=== PATIENT | female | born 1945 | race Caucasian/White ===

== ENCOUNTER 2018-12-07 11:28 | Day surgery (SDC) | payer MEDICARE, BC ==
[~2018-12-07] VITALS: Ht 162.6 cm; Wt 87.2 kg
[~2018-12-07 11:28] MED LIST: ACET325 PO; ADVANCED CALCI1 EACH PO; ALBU3IS INH; ALBU90OI INH; AMLO5 PO; ASPI325EC PO; ASPI81CH PO; ATOR40TA; AZO CRANBERRY1 EACH PO; BALANCED B-CO400 MCG PO; CALCAVITDA PO; CELE200 PO; CLOT10 PO; CYCL10 PO; ESOM20 PO; EZET10 PO; FENO54 PO; FERR325 PO; FISH1000 PO; Florastor250 MG PO; GABA100 PO; GABA300 PO; GUAI600T33 PO; Garlic1 EACH PO; HYDACE5 PO; HYDMOR2 PO; Hair, Skin & N1 EACH PO; LEVO750 PO; LISI5 PO; MELO7.5 PO; MULVITMIND PO; Mag-G500 MG; NAPR500 PO; NASACORT10.8 ML NS; NIAC500ER PO; OMEP20ER; OMEP20ER PO; PYRI100 PO; ROSU5 PO; RXCYCL10 PO; SODCHL.65S; TEMA30 PO; TEMAZEPAM PO; UBID10; VAGIFEM10 MCG VG; VARE1 PO
[2018-12-07] MEDS ORDERED: Aspir 8181 MG (12:25)
--- NOTE | 2018-12-07 16:02 | NUR ---
12/07/18 1602 Johanna Box LATE ENTRY FOR TODAY DURING RECOVER PATIENT REFUSED MULTIPLE OFFERS PO FLUIDS.
== END 2018-12-07 14:46 | disposition home or self-care (01) ==
LOC: ORSCSDS 11:28
PROVIDERS: Student in an Organized Health Care Education/Training Program
PROC: 0DBK8ZX Excision of Ascending Colon, Via Natural or Artificial Opening Endoscopic, Diagnostic (ICD-10-PCS; principal; 2018-12-07 13:45)
PROC: 0DBG8ZX Excision of Left Large Intestine, Via Natural or Artificial Opening Endoscopic, Diagnostic (ICD-10-PCS; principal; 2018-12-07 13:45)
DX: Z12.11 Encounter for screening for malignant neoplasm of colon (principal); D12.2 Benign neoplasm of ascending colon; K63.89 Other specified diseases of intestine; K57.30 Diverticulosis of large intestine without perforation or abscess without bleeding; K64.8 Other hemorrhoids; I10 Essential (primary) hypertension; I25.10 Atherosclerotic heart disease of native coronary artery without angina pectoris; J44.9 Chronic obstructive pulmonary disease, unspecified; G47.33 Obstructive sleep apnea (adult) (pediatric); E78.5 Hyperlipidemia, unspecified; Z79.82 Long term (current) use of aspirin; Z79.899 Other long term (current) drug therapy
CPT/HCPCS: 88305; J2405; J2704; J7120

== ENCOUNTER 2020-03-22 21:17 | Inpatient (IN) | payer MEDICARE, BC ==
[~2020-03-22] VITALS: Ht 177.8 cm; Wt 86.7 kg
[~2020-03-22 21:17] MED LIST changes: +Aspir 8181 MG
[2020-03-22 22:12] LABS: BASOPHILS ABSOLUTE AUTO 0.02 K/mm3 (0.00-0.23); BASOPHILS PERCENT AUTO 0 % (0-2); EOSINOPHILS PERCENT AUTO 0 % (0-6); Hematocrit 43.1 % (33.0-51.0); Hemoglobin 14.1 g/dL (11.5-16.0); IMMATURE GRAN ABSOLUTE AUTO 0.05 K/mm3 (0.00-0.10); IMMATURE GRAN PERCENT AUTO 1 % (0-1); LYMPHOCYTES ABSOLUTE AUTO 0.95 K/mm3 (0.84-5.20); LYMPHOCYTES PERCENT AUTO 10 % (21-46); MONOCYTES ABSOLUTE AUTO 0.57 K/mm3 (0.16-1.47); MONOCYTES PERCENT AUTO 6 % (4-13); Mean Corpuscular HGB 30.7 pg (26.0-34.0); Mean Corpuscular HGB Conc 32.7 g/dL (31.5-36.5); Mean Corpuscular Volume 94 fL (80-100); Mean Platelet Volume 10.3 fL (9.1-12.4); NEUTROPHILS ABSOLUTE AUTO 8.06 K/mm3 (1.96-9.15); NEUTROPHILS PERCENT AUTO 84 % (41-73); Platelet Count 199 K/mm3 (150-400); RDW Coefficient Variation 14.4 % (11.7-14.2); RDW Standard Deviation 49.6 fL (35.1-46.3); Red Blood Cell Count 4.59 M/mm3 (3.80-5.20); White Blood Cell Count 9.65 K/mm3 (4.00-11.30)
[2020-03-22 22:33] LABS: Albumin, Blood 3.2 g/dL (3.4-5.0); Albumin/Globulin Ratio 0.8 (0.8-1.8); Bilirubin, Total 0.6 mg/dL (0.1-1.0); Calcium, Blood 8.6 mg/dL (8.5-10.1); Creatinine, Blood 1.16 mg/dL (0.40-1.00); Globulin, Blood 3.8 g/dL (2.2-4.0); Troponin I 0.025 ng/mL (0.000-0.040)
[2020-03-22 23:38] LABS: Adenovirus Not Detected (NOT DETECT); Bordetella pertussis Not Detected (NOT DETECT); Chlamydophila pneumoniae Not Detected (NOT DETECT); Coronavirus 229E Not Detected (NOT DETECT); Coronavirus HKU1 Not Detected (NOT DETECT); Coronavirus NL63 Not Detected (NOT DETECT); Coronavirus OC43 Not Detected (NOT DETECT); Human Metapneumovirus Not Detected (NOT DETECT); Human Rhinovirus/Enterovirus Not Detected (NOT DETECT); Influenza A/2009-H1 Not Detected (NOT DETECT); Influenza A/H1 Not Detected (NOT DETECT); Influenza A/H3 Not Detected (NOT DETECT); Influenza B Not Detected (NOT DETECT); Mycoplasma pneumoniae Not Detected (NOT DETECT); Parainfluenza Virus 1 Not Detected (NOT DETECT); Parainfluenza Virus 2 Not Detected (NOT DETECT); Parainfluenza Virus 3 Not Detected (NOT DETECT); Parainfluenza Virus 4 Not Detected (NOT DETECT); Respiratory Syncytial Virus Not Detected (NOT DETECT); SARS-Cov-2 (COVID-19), BioFire Detected (NOT DETECT)
[2020-03-22] MEDS ORDERED: ACET325 (23:47)
[2020-03-22] MEDS ORDERED: ASPI81CH PO (23:47)
--- NOTE | 2020-03-23 02:06 | NUR ---
0134 PT ADMITTED TO ROOM 356 PER CART FROM ER; REPORT RECEIVED FROM XOCHITL GRANT, IN ER.
--- NOTE | 2020-03-23 04:15 | NUR ---
SHIFT SUMMARY: 74 Y/O FEMALE HAD RESTLESS NIGHT SINCE ARRIVAL TO UNIT; PT HAS NON PRODUCTIVE COUGH AND CHILLS AT TIMES WITH NO TEMPERATURE NOTED; PT COVID POSITIVE AND WAS PLACED ON DROPLET PRECAUTIONS; DENIES PAIN; ABLE TO TAKE ALL MEDS WITHOUT ISSUE; VERY WEAK; STOOD AND UTILIZED BSC TO VOID X 1 STANDBY ASSIST; CPAP APPLIED VIA RESPIRATORY THERAPIST; BED LOW POSITION WITH QUINTON LIGHT AT SIDE.
[2020-03-23 06:07] LABS: Bun/Creatinine Ratio 27.2 (12.0-20.0); Calcium, Blood 8.6 mg/dL (8.5-10.1); Creatinine, Blood 1.14 mg/dL (0.40-1.00); Potassium, Blood 3.1 mmol/L (3.5-5.5)
[2020-03-23 06:27] LABS: Albumin, Blood 3.4 g/dL (3.4-5.0); Albumin/Globulin Ratio 0.9 (0.8-1.8); Bilirubin, Total 0.7 mg/dL (0.1-1.0); Bun/Creatinine Ratio 26.5 (12.0-20.0); Calcium, Blood 8.6 mg/dL (8.5-10.1); Creatinine, Blood 1.13 mg/dL (0.40-1.00); Globulin, Blood 3.7 g/dL (2.2-4.0); Potassium, Blood 3.1 mmol/L (3.5-5.5); Total Protein, Blood 7.1 g/dL (6.4-8.2)
--- NOTE | 2020-03-24 03:45 | NUR ---
SUMMARY PT HAD NO NOTED FEVERS THIS SHIFT. PT STILL REPORTS FEELING CHILLS/ COLD AND WEAK. PT HAS BEEN SLEEPING WELL W/ HOME CPAP. PT CURRENTLY SLEEPING AND BREATHING EASY. CALL LIGHT IN REACH.
[2020-03-24 06:24] LABS: Alanine Aminotransfer (ALT/SGP 57 U/L (12-78); Albumin, Blood 2.8 g/dL (3.4-5.0); Albumin/Globulin Ratio 0.8 (0.8-1.8); Alk Phos 45 U/L (50-136); Anion Gap 8 mmol/L (6-16); Aspartate Aminotrans (AST/SGOT 95 U/L (12-37); Bilirubin, Total 0.5 mg/dL (0.1-1.0); Blood Urea Nitrogen 25 mg/dL (8-24); Bun/Creatinine Ratio 33.8 (12.0-20.0); CO2, Blood 23 mmol/L (21-32); Calcium, Blood 8.5 mg/dL (8.5-10.1); Chloride, Blood 112 mmol/L (98-108); Creatinine, Blood 0.74 mg/dL (0.40-1.00); Globulin, Blood 3.4 g/dL (2.2-4.0); Glomerular Filtration Rate >60 (60-); Glucose, Blood 99 mg/dL (70-99); Potassium, Blood 3.6 mmol/L (3.5-5.5); Sodium, Blood 143 mmol/L (136-145); Total Protein, Blood 6.2 g/dL (6.4-8.2)
--- NOTE | 2020-03-24 17:23 | NUR ---
SHIFT SUMMARY PT SATING IN THE 90S T/O DAY ON RA. AFIBRILE T/O DAY. PARTIAL BATH GIVEN TO PT. PT STATES SHE IS FEELING MUCH BETTER. PHYSICAL THERAPY ORDERED PER DR. CANALES. PT POSIBLE DC TOMORROW PENDING PT CONDITION & PT EVAL. NO ACUTE CHANGES IN ASSESSMENT AT THIS TIME. VS REVIEWED. WILL CONTINUE TO MONITOR. UNTIL TURNOVER IS COMPLETE.
--- NOTE | 2020-03-24 18:11 | NUR ---
PT AMBULATED TO BATHROOM. PT AMBILATED TO BATHROOM WITH GAIT BELT AND WALKER WITH MINIMAL ASSIST. PT MAINTAINED O2 SATS ABOVE 94% ON RA T/O ACTIVITY.
--- NOTE | 2020-03-25 01:35 | NUR ---
NOTIFIED THAT PT HAS BEEN BRADYCARDIC W/HR 54-58, OCCASIONALLY 60'S BPM BUT PT IS ASYMPTOMATIC OF CARDIAC DISTRESS, SLEEPING COMFORTABLY ON CPAP W/SPO2 WNL. NO NEW ORDERS AT THIS TIME. WILL CONTINUE TO MONITOR CLOSELY AND ALERT MD CASTILLO.
--- NOTE | 2020-03-25 02:12 | NUR ---
PT IS COVID AND FLU NEGATIVE. HE ALSO HAD HIS FLU VACCINE ALREADY THIS SEASON SO DENIED NEEDING ONE HERE.
--- NOTE | 2020-03-25 06:07 | NUR ---
TYLENOL RECIEVED FOR IMPROVED MCGRATH PAIN CONTROL. SHE'S NOW RESTING AGAIN W/O S/S DISTRESS.
--- NOTE | 2020-03-25 06:08 | NUR ---
PT WAS UP TO TOILET W/SBA FOR VOID AND BM. MODERATE AMT OF BRIGHT RED BLOOD OBSERVED IN TOILET. PT ADMITTED TO OCCASIONAL BLEEDING HEMMORHOIDS BUT STATED "NOT USUALLY THAT MUCH BLOOD". PT ON LOVENOX INJECTIONS AT THIS TIME. VSS: BP STABLE 131/81, HR 82 BPM, SPO2 96% ON RA, RR 18 AND TEMP 98.2. WILL NOTIFY BOILER HOUSE INSPECTOR AND POSSIBLY PRN AND WILL ENSURE DAY STAFF ARE AWARE.
--- NOTE | 2020-03-25 06:30 | NUR ---
SUMMARY: PT A/OX4, CALLS APPROPRIATELLY AND COOPERATIVE W/CARE. SHE REMAINS VERY TIRED AND SLEPT MAJORITY OF SHIFT. CONT BIOX REMAINS INTACT W/SPO2 WNL ON RA AND SHE TOLERATES CPAP AT HS. RESPS E/U BUT SOME SOB NOTED W/EXERTION. TELEMETRY INTACT AND SHE IS TYPICALLY NSR AT 60'S-80'S BPM BUT SHE DID HAVE OCCASIONAL BRADYCARDIA WHILE ASLEEP, HR LOW OF 54 BPM. PT DENIED ANY S/S CARDIAC DISTRESS. PT REPORTED MCGRATH W/TYLENOL RECIEVED FOR GOOD EFFECT. SHE WAS UP TO TOILET W/1PA AND FWW. SHE'S WEAK AND SHAKEY R/T ILLNESS/STEROIDS SO SHE AMBULATES SLOWLY AND CAUTIOUSLY. PT HAD X1 FORMED BM THIS SHIFT W/MODERATE AMT OF BRIGHT RED BLOOD. SHE IS CURRENTLY ON LOVENOX AND ADMITS TO OCCASIONAL BLEEDING HEMMORHOIDS BUT "NOT USUALLY THIS MUCH". WILL ENSURE DAY STAFF ARE AWARE. VITALS CHECKED PER UNIT PROTOCOL BUT WERE ADDITIONALLY MONITORED WHEN BRADYCARDIC AND AFTER OBSERVING BLOOD IN STOOL, ALL VSS/AFEBRILE. SHE REPORTS FEELING GENERALLY BETTER BUT IS UNSURE SHE FEELS WELL ENOUGH TO D/C TODAY INITIALLY PLANNED. NO ACUTE CHANGES. WCTM AND REPORT TO DAY RN.
[2020-03-25 10:29] LABS: BASOPHILS ABSOLUTE AUTO 0.01 K/mm3 (0.00-0.23); BASOPHILS PERCENT AUTO 0 % (0-2); EOSINOPHILS PERCENT AUTO 0 % (0-6); Hematocrit 42.6 % (33.0-51.0); Hemoglobin 13.6 g/dL (11.5-16.0); IMMATURE GRAN ABSOLUTE AUTO 0.07 K/mm3 (0.00-0.10); IMMATURE GRAN PERCENT AUTO 1 % (0-1); LYMPHOCYTES ABSOLUTE AUTO 1.32 K/mm3 (0.84-5.20); LYMPHOCYTES PERCENT AUTO 15 % (21-46); MONOCYTES ABSOLUTE AUTO 0.33 K/mm3 (0.16-1.47); MONOCYTES PERCENT AUTO 4 % (4-13); Mean Corpuscular HGB Conc 31.9 g/dL (31.5-36.5); Mean Corpuscular Volume 97 fL (80-100); Mean Platelet Volume 11.1 fL (9.1-12.4); NEUTROPHILS ABSOLUTE AUTO 7.23 K/mm3 (1.96-9.15); NEUTROPHILS PERCENT AUTO 81 % (41-73); Platelet Count 291 K/mm3 (150-400); RDW Coefficient Variation 14.2 % (11.7-14.2); RDW Standard Deviation 51.3 fL (35.1-46.3); Red Blood Cell Count 4.39 M/mm3 (3.80-5.20); White Blood Cell Count 8.96 K/mm3 (4.00-11.30)
[2020-03-25 12:01] LABS: ADENOVIRUS F 40/41 Not Detected (Not Detected); ASTROVIRUS Not Detected (Not Detected); C DIFFICILE TOXIN A/B Not Detected (Not Detected); CAMPYLOBACTER Not Detected (Not Detected); CRYPTOSPORIDIUM Not Detected (Not Detected); CYCLOSPORA CAYETANENSIS Not Detected (Not Detected); ENTAMOEBA HISTOLYTICA Not Detected (Not Detected); ENTEROAGGREGATIVE E COLI Not Detected (Not Detected); ENTEROPATHOGENIC E COLI Not Detected (Not Detected); ENTEROTOXIGENIC E COLI Not Detected (Not Detected); GIARDIA LAMBLIA Not Detected (Not Detected); NOROVIRUS GI/GII Not Detected (Not Detected); PLESIOMONAS SHIGELLOIDES Not Detected (Not Detected); ROTAVIRUS A Not Detected (Not Detected); SALMONELLA Not Detected (Not Detected); SAPOVIRUS Not Detected (Not Detected); SHIGA-TOXIN-PRODUCING E COLI Not Detected (Not Detected); SHIGELLA/ENTEROINVASIVE E COLI Not Detected (Not Detected); VIBRIO Not Detected (Not Detected); VIBRIO CHOLERAE Not Detected (Not Detected); YERSINIA ENTEROCOLITICA Not Detected (Not Detected)
--- NOTE | 2020-03-25 13:36 | NUR ---
No visitor is allowed, door is closed
--- NOTE | 2020-03-25 17:00 | NUR ---
SHIFT SUMMARY PATIENT MEDICATED X1 FRO HEADACHE. DENIES NAUSEA AND SHORTNESS OF BREATH. PATIENT VERY TIRED AND SLEEPING MOST OF SHIFT. UP ONE ASSIST W/FWW TO BATHROOM. PT WORKED WITH PATIENT. HOLDING HEPARIN AND ASPIRIN DUE TO BLOOD IN STOOL THIS AM. STAT CBC THIS AM UNREMARKABLE. POSSIBLE DISCHARGE TOMORROW.
--- NOTE | 2020-03-25 17:43 | NUR ---
Per admit trigger, I attempted to meet with Mrs. Conde to offer prayer and spiritual encouragement. RN informed me that pt is very tired and Covid+. she suggested I not visit. Asked RN to inform Mrs. Conde that marble finisher is praying for her and wuold be happy to visit in person if she desired. RN informed me that pt declined visit at this time. I will remain available.
--- NOTE | 2020-03-26 05:49 | NUR ---
SHIFT SUMMARY PT A/O X4; PLEASANT AND COOPERATIVE WITH CARE. 1 ASSIST W/FWW TO THE BATHROOM. PT APPEARS TO BE VERY FATIGUED AND HAS BEEN RESTING IN BED FOR THE MAJORITY OF THE SHIFT. MEDICATED X2 FOR HEADACHE. PT REFUSED HEPARIN SHOT THIS PM. VSS; RESTING QUIETLY IN BED W/CALL LIGHT IN REACH.
--- NOTE | 2020-03-26 12:42 | NUR ---
Not allowed to visit
--- NOTE | 2020-03-26 14:46 | NUR ---
DISCHARGE DISCHARGE MEDICATIONS AND INSTRUCTIONS EXPLAINED TO PATIENT. PATIENT STATED UNDERSTANDING. PCP FOLLOW UP WITH [facility]. BELONGINGS WITH PATIENT. IV REMOVED WITHOUT DIFFICULTY. TRANSFERED TO PRIVATE VEHICLE VIA WHEELCHAIR.
== END 2020-03-26 14:50 | disposition home health service (06) | DRG 871 ==
LOC: ER 21:17 → MEDS 21:18
PROVIDERS: Emergency Medicine; Internal Medicine; ADMIT Family Medicine
PROC: 3E0333Z Introduction of Anti-inflammatory into Peripheral Vein, Percutaneous Approach (ICD-10-PCS; principal; 2020-03-23)
DX: A41.89 Other specified sepsis (principal); J12.89 Other viral pneumonia; J96.01 Acute respiratory failure with hypoxia; U07.1 COVID-19; E87.2 Acidosis; N17.9 Acute kidney failure, unspecified; D68.32 Hemorrhagic disorder due to extrinsic circulating anticoagulants; E86.0 Dehydration; E87.6 Hypokalemia; G62.9 Polyneuropathy, unspecified; E78.5 Hyperlipidemia, unspecified; Z87.891 Personal history of nicotine dependence; G47.33 Obstructive sleep apnea (adult) (pediatric); T38.0X5A Adverse effect of glucocorticoids and synthetic analogues, initial encounter; T45.515A Adverse effect of anticoagulants, initial encounter; K64.9 Unspecified hemorrhoids
CPT/HCPCS: 0097U; 0202U; 36415; 71045; 80048; 80053; 82947; 83605; 84145; 84484; 85025; 87040; 93005; 93010; 94762; 96360; 96361; 96365; 96372; 97110; 97116; 97162; 99285-25; A9270; A9270-GY; G0378; J0696; J1644; J7030; J7050

== ENCOUNTER → 2021-01-27 | Outpatient (CLI) | payer MEDICARE, BC ==
[~2021-01-27] MED LIST changes: +ACET325; +ACET500 PO; +ALOE VERA JUICE PO; +AZIT250 PO; +Aspirin EC81 MG PO; +BENADRYL25 MG PO; +Cranberry400 MG PO; +ELIQUIS5 MG PO; +HYDCHL12.5 PO; +MELATONIN5 M1 PO; +MULVITA PO; +NASACORT10.8 ML; +Neurontin800 MG PO; +VALARIAN ROOT PO; +VITAMIN B PO; +VITAMIN B12 PO; +VITAMIN C PO; +VITAMIN D PO; +XARELTO20 MG PO
[2021-01-27 18:14] LABS: BASOPHILS PERCENT AUTO 1 % (0-2); EOSINOPHILS ABSOLUTE AUTO 0.46 K/mm3 (0.00-0.68); EOSINOPHILS PERCENT AUTO 4 % (0-6); Hemoglobin 14.4 g/dL (11.5-16.0); IMMATURE GRAN ABSOLUTE AUTO 0.06 K/mm3 (0.00-0.10); IMMATURE GRAN PERCENT AUTO 1 % (0-1); LYMPHOCYTES ABSOLUTE AUTO 2.99 K/mm3 (0.84-5.20); LYMPHOCYTES PERCENT AUTO 24 % (21-46); MONOCYTES ABSOLUTE AUTO 1.08 K/mm3 (0.16-1.47); MONOCYTES PERCENT AUTO 9 % (4-13); Mean Corpuscular HGB 28.9 pg (26.0-34.0); Mean Corpuscular Volume 90 fL (80-100); Mean Platelet Volume 9.8 fL (9.1-12.4); NEUTROPHILS ABSOLUTE AUTO 7.61 K/mm3 (1.96-9.15); NEUTROPHILS PERCENT AUTO 62 % (41-73); Platelet Count 297 K/mm3 (150-400); RDW Coefficient Variation 14.8 % (11.7-14.2); RDW Standard Deviation 48.7 fL (35.1-46.3); Red Blood Cell Count 4.98 M/mm3 (3.80-5.20)
[2021-01-27 18:21] LABS: Albumin, Blood 3.9 g/dL (3.4-5.0); Albumin/Globulin Ratio 1.1 (0.8-1.8); Bilirubin, Total 0.3 mg/dL (0.1-1.0); Globulin, Blood 3.7 g/dL (2.2-4.0); Potassium, Blood 3.5 mmol/L (3.5-5.5); Total Protein, Blood 7.6 g/dL (6.4-8.2)
[2021-01-27 18:28] LABS: Bun/Creatinine Ratio 19.4 (12.0-20.0); Calcium, Blood 9.1 mg/dL (8.5-10.1); Creatinine, Blood 0.93 mg/dL (0.40-1.00)
== END | disposition home or self-care (01) ==
LOC: LAB 18:04 → LAB SHORT 18:04
PROVIDERS: Physician Assistant
DX: R53.83 Other fatigue (principal)
CPT/HCPCS: 80053; 84443; 85025; 85651

== ENCOUNTER → 2023-09-16 | Outpatient (CLI) | payer MEDICARE, BC | END | disposition home or self-care (01) | LOC: LAB SHORT 17:51 → LAB 17:51 | DX: N39.0 Urinary tract infection, site not specified (principal) ==

== ENCOUNTER 2024-09-25 17:40 | Emergency (ER) | payer MEDICARE, BC ==
[~2024-09-25] VITALS: Ht 172.7 cm; Wt 99.8 kg
[2024-09-25] MEDS ORDERED: Neurontin800 MG PO (18:04)
[2024-09-25 18:27] LABS: BASOPHILS ABSOLUTE AUTO 0.16 K/mm3 (0.00-0.23); BASOPHILS PERCENT AUTO 1 % (0-2); EOSINOPHILS ABSOLUTE AUTO 0.43 K/mm3 (0.00-0.68); EOSINOPHILS PERCENT AUTO 2 % (0-6); Hematocrit 46.8 % (33.0-51.0); Hemoglobin 15.3 g/dL (11.5-16.0); IMMATURE GRAN ABSOLUTE AUTO 0.14 K/mm3 (0.00-0.10); IMMATURE GRAN PERCENT AUTO 1 % (0-1); LYMPHOCYTES ABSOLUTE AUTO 4.49 K/mm3 (0.84-5.20); LYMPHOCYTES PERCENT AUTO 25 % (21-46); MONOCYTES ABSOLUTE AUTO 1.57 K/mm3 (0.16-1.47); MONOCYTES PERCENT AUTO 9 % (4-13); Mean Corpuscular HGB 31.2 pg (26.0-34.0); Mean Corpuscular HGB Conc 32.7 g/dL (31.5-36.5); Mean Corpuscular Volume 95 fL (80-100); Mean Platelet Volume 9.7 fL (9.1-12.4); NEUTROPHILS ABSOLUTE AUTO 11.18 K/mm3 (1.96-9.15); NEUTROPHILS PERCENT AUTO 62 % (41-73); Platelet Count 294 K/mm3 (150-400); RDW Coefficient Variation 14.9 % (11.7-14.2); RDW Standard Deviation 51.6 fL (35.1-46.3); Red Blood Cell Count 4.91 M/mm3 (3.80-5.20); White Blood Cell Count 17.97 K/mm3 (4.00-11.30)
[2024-09-25 19:08] LABS: Albumin, Blood 3.8 g/dL (3.4-5.0); Bilirubin, Total 0.4 mg/dL (0.1-1.0); Bun/Creatinine Ratio 25.1 (12.0-20.0); Calcium, Blood 9.4 mg/dL (8.5-10.1); Creatinine, Blood 0.8 mg/dL (0.40-1.00); Globulin, Blood 3.8 g/dL (2.2-4.0); Potassium, Blood 4.5 mmol/L (3.5-5.5); Total Protein, Blood 7.6 g/dL (6.4-8.2)
[2024-09-25] MEDS ORDERED: Acetaminophen 500 MG Tab PO ONE (19:20)
[2024-09-25 22:08] LABS: Source, Urine Voided
[2024-09-25 22:12] LABS: Appearance, Urine Cloudy (Clear); Bilirubin, Urine Neg (Neg); Blood, Urine Neg (Neg); Color, Urine Yellow (P-Yellow); Glucose Qualitative, Urine Neg (Neg); Ketones, Urine Neg (Neg); Leukocyte Esterase, Urine 1+ (Neg); Nitrite, Urine Neg (Neg); Protein, Urine 2+ (Neg); Specific Gravity, Urine 1.015 (1.003-1.022); Urobilinogen, Urine NORM (Normal)
[2024-09-25 22:18] LABS: Bacteria Many /hpf; Squamous Epithelial Cells Few /hpf (Few)
[2024-09-25 23:00] VITALS: BP 153/94
[2024-09-25] MEDS ORDERED: Cephalexin Monohydrate 500 MG Cap PO ONE (23:25)
[2024-09-25] MEDS ORDERED: CEPH500 PO (23:27)
[2024-09-30] MEDS ORDERED: EZETIMIBE10 M6 PO (15:19)
[2024-09-30] MEDS ORDERED: Neurontin800 MG PO (15:20)
[2024-09-30] MEDS ORDERED: CYMBALTA20 M2 PO (15:20)
[2024-09-30] MEDS ORDERED: ACET500 (21:56)
[2024-10-03] MEDS ORDERED: AMLO10 PO (10:51)
[2024-10-03] MEDS ORDERED: AMOCLA875 PO (10:51)
[2024-10-03] MEDS ORDERED: CLOP75 PO (10:52)
[2024-10-03] MEDS ORDERED: ATOR40TA PO (10:52)
[2024-10-03] MEDS ORDERED: MECL25 PO (10:52)
[2024-10-03] MEDS ORDERED: LOSA50 PO (10:52)
[2024-10-03] MEDS ORDERED: VISBIOME 112.51 EACH PO (10:52)
== END 2024-09-25 23:47 | disposition home or self-care (01) ==
LOC: ER 17:40
PROVIDERS: Emergency Medicine
DX: R53.1 Weakness (principal); S00.81XA Abrasion of other part of head, initial encounter; W18.39XA Other fall on same level, initial encounter; Z88.5 Allergy status to narcotic agent; Z91.040 Latex allergy status; Z87.891 Personal history of nicotine dependence
CPT/HCPCS: 70450; 80053; 81001; 85025; 87086; 93005; 93010; 99284-25; A9270

== ENCOUNTER 2024-10-05 12:53 | Observation (INO) | payer MEDICARE, BC ==
[~2024-10-05] VITALS: Ht 162.6 cm; Wt 95.5 kg
[~2024-10-05 12:53] MED LIST changes: +ACET500; +AMLO10 PO; +AMOCLA875 PO; +ATOR40TA PO; +CEPH500 PO; +CLOP75 PO; +LOSA50 PO; +MECL25 PO; +VISBIOME 112.51 EACH PO
[2024-10-05 13:34] LABS: BASOPHILS ABSOLUTE AUTO 0.08 K/mm3 (0.00-0.23); BASOPHILS PERCENT AUTO 1 % (0-2); EOSINOPHILS PERCENT AUTO 3 % (0-6); Hemoglobin 15.3 g/dL (11.5-16.0); IMMATURE GRAN ABSOLUTE AUTO 0.08 K/mm3 (0.00-0.10); IMMATURE GRAN PERCENT AUTO 1 % (0-1); LYMPHOCYTES ABSOLUTE AUTO 3.14 K/mm3 (0.84-5.20); LYMPHOCYTES PERCENT AUTO 20 % (21-46); MONOCYTES ABSOLUTE AUTO 0.93 K/mm3 (0.16-1.47); MONOCYTES PERCENT AUTO 6 % (4-13); Mean Corpuscular HGB 30.5 pg (26.0-34.0); Mean Corpuscular HGB Conc 32.6 g/dL (31.5-36.5); Mean Corpuscular Volume 94 fL (80-100); Mean Platelet Volume 9.5 fL (9.1-12.4); NEUTROPHILS ABSOLUTE AUTO 10.96 K/mm3 (1.96-9.15); NEUTROPHILS PERCENT AUTO 70 % (41-73); Platelet Count 351 K/mm3 (150-400); RDW Coefficient Variation 15.1 % (11.7-14.2); RDW Standard Deviation 51.6 fL (35.1-46.3); Red Blood Cell Count 5.02 M/mm3 (3.80-5.20); White Blood Cell Count 15.59 K/mm3 (4.00-11.30)
[2024-10-05 14:10] LABS: Alanine Aminotransfer (ALT/SGP 25 U/L (12-78); Albumin, Blood 3.3 g/dL (3.4-5.0); Albumin/Globulin Ratio 0.9 (0.8-1.8); Alk Phos 78 U/L (50-136); Anion Gap 11 mmol/L (3-11); Aspartate Aminotrans (AST/SGOT 49 U/L (12-37); Bilirubin, Total 0.4 mg/dL (0.1-1.0); Blood Urea Nitrogen 48 mg/dL (8-24); Bun/Creatinine Ratio 33.3 (12.0-20.0); CO2, Blood 25 mmol/L (21-32); Calcium, Blood 9.4 mg/dL (8.5-10.1); Chloride, Blood 106 mmol/L (98-108); Creatinine, Blood 1.44 mg/dL (0.40-1.00); Globulin, Blood 3.8 g/dL (2.2-4.0); Glomerular Filtration Rate 37 (60-); Glucose, Blood 146 mg/dL (70-99); Potassium, Blood 3.7 mmol/L (3.5-5.5); Sodium, Blood 138 mmol/L (136-145); Total Protein, Blood 7.1 g/dL (6.4-8.2)
[2024-10-05 17:22] LABS: Source, Urine Clean Catch
[2024-10-05 17:30] LABS: Appearance, Urine Clear (Clear); Bilirubin, Urine Neg (Neg); Blood, Urine Neg (Neg); Color, Urine Yellow (P-Yellow); Glucose Qualitative, Urine Neg (Neg); Ketones, Urine Neg (Neg); Leukocyte Esterase, Urine Neg (Neg); Nitrite, Urine Neg (Neg); Protein, Urine 1+ (Neg); Urobilinogen, Urine NORM (Normal)
[2024-10-05] MEDS ORDERED: NS 1,000 ML IV SCH ×2 (19:05→21:00)
[2024-10-05] MEDS ORDERED: Meclizine HCl 25 MG Tab PO PRN (20:10)
[2024-10-05] MEDS ORDERED: Ondansetron 4 MG TAB PO PRN (20:20)
[2024-10-05] MEDS ORDERED: Acetaminophen 325 MG TABLET PO PRN (20:35)
[2024-10-05] MEDS ORDERED: Lactobacil 2-S.Thermo-Bifido 1 1 Cap PO SCH (21:00)
[2024-10-05] MEDS ORDERED: Gabapentin 300 MG Cap PO SCH (21:00)
[2024-10-05] MEDS ORDERED: Amoxicillin/Clavulanate K 875 MG Tab PO SCH (21:00)
[2024-10-05] MEDS ORDERED: Sennosides 8.6 MG Tab PO SCH (21:00)
--- NOTE | 2024-10-06 00:42 | NUR ---
ADMIT PATIENT BROUGHT TO 308 [facility]IA [facility] AT 2225. DNR. REPORT RECEIVED FROM ED RN PRASAD. ORIENTED TO ROOM. CALL LIGHT WITHIN REACH. TOLERATING EATING AND DRINKING WELL. SCDs PLACED.
[2024-10-06 03:19] VITALS: BP 145/118
[2024-10-06 03:27] VITALS: BP 133/73
--- NOTE | 2024-10-06 04:23 | NUR ---
SHIFT SUMMARY ADMIT ..25 FOR RYAN WITH CREAT OF 1.44, LIKELY PRERENAL AZOTEMIA 2/2 DEHYDRATION. 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 INABILITY TO CARE FOR SELF SINCE RETURN HOME, NEWLY BEDBOUND, CANNOT TRANSFER WITHOUT ASSISTANCE. X5 DAYS REMAINING OF AUGMENTIN FOR L OTITIS MEDIA. NO NEW FINDINGS ON 10/05 CT HEAD. REGULAR DIET. INDEPENDENT EATING AND DRINKING. A&OX4. NO SLURRED SPEECH. HR 84, BP 133/73. PUREWICK IN USE. PENDING PT/OT AND CARE MANAGEMENT EVAL TODAY. NS @ 150 CC/HR VIA 20g IV IN LAC.
[2024-10-06 06:19] LABS: BASOPHILS ABSOLUTE AUTO 0.11 K/mm3 (0.00-0.23); BASOPHILS PERCENT AUTO 1 % (0-2); EOSINOPHILS ABSOLUTE AUTO 0.51 K/mm3 (0.00-0.68); EOSINOPHILS PERCENT AUTO 4 % (0-6); Hematocrit 42.3 % (33.0-51.0); Hemoglobin 13.6 g/dL (11.5-16.0); IMMATURE GRAN ABSOLUTE AUTO 0.05 K/mm3 (0.00-0.10); IMMATURE GRAN PERCENT AUTO 0 % (0-1); LYMPHOCYTES ABSOLUTE AUTO 3.45 K/mm3 (0.84-5.20); LYMPHOCYTES PERCENT AUTO 25 % (21-46); MONOCYTES ABSOLUTE AUTO 1.31 K/mm3 (0.16-1.47); MONOCYTES PERCENT AUTO 10 % (4-13); Mean Corpuscular HGB 31.3 pg (26.0-34.0); Mean Corpuscular HGB Conc 32.2 g/dL (31.5-36.5); Mean Corpuscular Volume 97 fL (80-100); Mean Platelet Volume 10.1 fL (9.1-12.4); NEUTROPHILS ABSOLUTE AUTO 8.38 K/mm3 (1.96-9.15); NEUTROPHILS PERCENT AUTO 61 % (41-73); Platelet Count 273 K/mm3 (150-400); RDW Standard Deviation 53.2 fL (35.1-46.3); Red Blood Cell Count 4.35 M/mm3 (3.80-5.20); White Blood Cell Count 13.81 K/mm3 (4.00-11.30)
[2024-10-06 07:07] LABS: Albumin, Blood 2.8 g/dL (3.4-5.0); Albumin/Globulin Ratio 0.8 (0.8-1.8); Bilirubin, Total 0.3 mg/dL (0.1-1.0); Bun/Creatinine Ratio 39.5 (12.0-20.0); Calcium, Blood 8.6 mg/dL (8.5-10.1); Creatinine, Blood 0.86 mg/dL (0.40-1.00); Globulin, Blood 3.5 g/dL (2.2-4.0); Magnesium, Blood 2.2 mg/dL (1.6-2.4); Potassium, Blood 3.9 mmol/L (3.5-5.5); Total Protein, Blood 6.3 g/dL (6.4-8.2)
[2024-10-06 07:20] VITALS: BP 134/76
[2024-10-06] MEDS ORDERED: Atorvastatin 40 MG Tab PO SCH (09:00)
[2024-10-06] MEDS ORDERED: Aspirin 81 MG Chew PO SCH (09:00)
[2024-10-06] MEDS ORDERED: AmLODIPine Besylate 5 MG Tab PO SCH (09:00)
[2024-10-06] MEDS ORDERED: Heparin Sodium,Porcine 5,000 UNIT/0.5 ML SDV SC SCH (09:00)
[2024-10-06] MEDS ORDERED: Clopidogrel Bisulfate 75 MG Tab PO SCH (09:00)
--- NOTE | 2024-10-06 12:27 | NUR ---
RN NOTE MS CAMP IS ABLE TO ANSWER ORIENTATION QUESTIONS APPROPRIATELY. SHE HAS SOME TROUBLE FINDING THE RIGHT WORDS. SHE HAS SOME DELAY IN HER VERBAL RESPONSES. SHE GOT UP TO THE BSC AND THE RECLINER THIS MORNING WITH 2 PERSON ASSIST AND GAIT BELT. HEAVY TRANSFER SHE HAS TROUBLE MOVING HER LEGS WHERE SHE NEEDS TO TO BALANCE AND HELP WITH THE TRANSFER. SHE WAS ABLE TO HELP WITH SITTING UP ON THE EDGE OF THE BED. C/O VERY PAINFUL FEET THIS MORNING FROM NEUROPATHY. INCREASED NEURONTIN DOSE. SUPPORTIVE FAMILY AT THE BEDSIDE. PT HAS AGREED TO GO TO REHAB AND [employer] SUPERVISOR TEQUILA JENSEN IS LOOKING FOR PLACEMENT OPTIONS. IN RECLINER. CALL LIGHT IN REACH.
[2024-10-06] MEDS ORDERED: Gabapentin 400 MG Cap PO SCH (13:00)
--- NOTE | 2024-10-06 18:41 | NUR ---
SHIFT REPORT SEE RN NOTE. MS CAMP IS UP IN THE RECLINER FOR A SECOND TIME TODAY. TWO PERSON TRANSFER WITH A LOT OF PROMPTS. UP TO BSC TWICE TODAY FOR BMS. PUREWICK IN PLACE FOR URINATION. SHE IS AGREEABLE TO REHAB WHEN THEY ARE ABLE TO ACCEPT HER. LESS FOOT PAIN LATER IN THE SHIFT AFTER INCREASED NEURONTIN DOSE. CALL LIGHT IN REACH.
[2024-10-06 19:58] VITALS: BP 124/71
[2024-10-07 03:49] VITALS: BP 156/79
[2024-10-07 06:56] LABS: BASOPHILS ABSOLUTE AUTO 0.12 K/mm3 (0.00-0.23); BASOPHILS PERCENT AUTO 1 % (0-2); EOSINOPHILS ABSOLUTE AUTO 0.45 K/mm3 (0.00-0.68); EOSINOPHILS PERCENT AUTO 3 % (0-6); Hematocrit 39.7 % (33.0-51.0); Hemoglobin 13.4 g/dL (11.5-16.0); IMMATURE GRAN ABSOLUTE AUTO 0.07 K/mm3 (0.00-0.10); IMMATURE GRAN PERCENT AUTO 1 % (0-1); LYMPHOCYTES ABSOLUTE AUTO 3.58 K/mm3 (0.84-5.20); LYMPHOCYTES PERCENT AUTO 27 % (21-46); MONOCYTES PERCENT AUTO 10 % (4-13); Mean Corpuscular HGB 31.5 pg (26.0-34.0); Mean Corpuscular HGB Conc 33.8 g/dL (31.5-36.5); Mean Corpuscular Volume 93 fL (80-100); NEUTROPHILS ABSOLUTE AUTO 7.62 K/mm3 (1.96-9.15); NEUTROPHILS PERCENT AUTO 58 % (41-73); RDW Coefficient Variation 14.8 % (11.7-14.2); RDW Standard Deviation 50.5 fL (35.1-46.3); Red Blood Cell Count 4.26 M/mm3 (3.80-5.20); White Blood Cell Count 13.14 K/mm3 (4.00-11.30)
[2024-10-07 06:57] LABS: Bun/Creatinine Ratio 26.4 (12.0-20.0); Calcium, Blood 8.9 mg/dL (8.5-10.1); Creatinine, Blood 0.76 mg/dL (0.40-1.00); Potassium, Blood 3.9 mmol/L (3.5-5.5)
[2024-10-07 07:02] LABS: Platelet Count 248 K/mm3 (150-400)
[2024-10-07 07:32] VITALS: BP 147/94
[2024-10-07 15:13] VITALS: BP 150/87
--- NOTE | 2024-10-07 15:53 | NUR ---
SHIFT SUMMARY PATIENT ABLE TO GET TO CHAIR THIS SHIFT, HEAVY 2+ ASSISTANCE. PATIENT HAVING DIFFICULTY GETTING BODY TO RESPOND TO THOUGHTS OF MOVEMENT, MORE RIGHT SIDE AFFECTED. USING PUREWICK THIS SHIFT. A/OX3-4. CM INFORMED NURSING STAFF KATHLEEN WILL NEED TO DO A REVIEW PRIOR TO ACCEPTING AND THIS REVIEW WILL NOT HAPPEN UNTIL TUESDAY. NOT USING CALL LIGHT THIS SHIFT. ABLE TO VERBALIZE SOME BASIC NEEDS. ABLE TO CARRY CONVERSATION WITH FRIENDS.
[2024-10-07 19:38] VITALS: BP 136/92
[2024-10-08 04:59] VITALS: BP 130/81
[2024-10-08 07:21] LABS: BASOPHILS ABSOLUTE AUTO 0.12 K/mm3 (0.00-0.23); BASOPHILS PERCENT AUTO 1 % (0-2); EOSINOPHILS PERCENT AUTO 3 % (0-6); Hematocrit 40.6 % (33.0-51.0); Hemoglobin 13.3 g/dL (11.5-16.0); IMMATURE GRAN ABSOLUTE AUTO 0.05 K/mm3 (0.00-0.10); IMMATURE GRAN PERCENT AUTO 0 % (0-1); LYMPHOCYTES ABSOLUTE AUTO 3.39 K/mm3 (0.84-5.20); LYMPHOCYTES PERCENT AUTO 25 % (21-46); MONOCYTES ABSOLUTE AUTO 1.14 K/mm3 (0.16-1.47); MONOCYTES PERCENT AUTO 8 % (4-13); Mean Corpuscular HGB 31.1 pg (26.0-34.0); Mean Corpuscular HGB Conc 32.8 g/dL (31.5-36.5); Mean Corpuscular Volume 95 fL (80-100); Mean Platelet Volume 9.9 fL (9.1-12.4); NEUTROPHILS ABSOLUTE AUTO 8.56 K/mm3 (1.96-9.15); NEUTROPHILS PERCENT AUTO 63 % (41-73); Platelet Count 272 K/mm3 (150-400); RDW Coefficient Variation 14.7 % (11.7-14.2); Red Blood Cell Count 4.28 M/mm3 (3.80-5.20); White Blood Cell Count 13.66 K/mm3 (4.00-11.30)
[2024-10-08 07:46] LABS: Bun/Creatinine Ratio 24.5 (12.0-20.0); Calcium, Blood 9.2 mg/dL (8.5-10.1); Creatinine, Blood 0.78 mg/dL (0.40-1.00); Potassium, Blood 4.1 mmol/L (3.5-5.5)
[2024-10-08 07:48] VITALS: BP 134/87
[2024-10-08] MEDS ORDERED: EZETIMIBE10 M6 PO (13:00)
[2024-10-08] MEDS ORDERED: CYMBALTA20 M2 PO (13:15)
--- NOTE | 2024-10-08 19:41 | NUR ---
DISCHARGE SUMMARY CLIENT IS A&OX4. SEEN BY PROVIDER DURING MORNING ROUNDS. DISCHARGE ORDERS RECIEVED FOR CLIENT TO D/C TO REHAB FACILITY. IV AND MARCELINO D/C'D. CLIENT EXCORTED OFF UNIT BY KATHLEEN. DISCHARGE PACKET IN POSSESSION OF TRANSPORTATION STAFF. CLIENT PROPERTY WITH CLIENT'S SPOUSE.
== END 2024-10-08 15:43 ==
LOC: ER 12:53 → ERHOLD 12:57 → MEDS 12:57 → ER 20:14 → MEDS 20:14 → ERHOLD 20:14 → MEDS 22:25
PROVIDERS: Family Medicine; Internal Medicine; Physician Assistant; Student in an Organized Health Care Education/Training Program; ADMIT Internal Medicine
DX: I12.9 Hypertensive chronic kidney disease with stage 1 through stage 4 chronic kidney disease, or unspecified chronic kidney disease (principal); N18.31 Chronic kidney disease, stage 3a; N17.9 Acute kidney failure, unspecified; I69.351 Hemiplegia and hemiparesis following cerebral infarction affecting right dominant side; I69.328 Other speech and language deficits following cerebral infarction; I73.9 Peripheral vascular disease, unspecified; R73.03 Prediabetes; K76.0 Fatty (change of) liver, not elsewhere classified; U09.9 Post COVID-19 condition, unspecified; I25.10 Atherosclerotic heart disease of native coronary artery without angina pectoris; G62.9 Polyneuropathy, unspecified; E78.5 Hyperlipidemia, unspecified; G47.33 Obstructive sleep apnea (adult) (pediatric); H66.90 Otitis media, unspecified, unspecified ear; K21.9 Gastro-esophageal reflux disease without esophagitis; E66.01 Morbid (severe) obesity due to excess calories; Z68.30 Body mass index [BMI] 30.0-30.9, adult; Z66 Do not resuscitate; Z87.891 Personal history of nicotine dependence; Z79.02 Long term (current) use of antithrombotics/antiplatelets; Z79.82 Long term (current) use of aspirin; Z79.899 Other long term (current) drug therapy; Z88.5 Allergy status to narcotic agent; Z88.8 Allergy status to other drugs, medicaments and biological substances; Z91.040 Latex allergy status
CPT/HCPCS: 36415; 51701; 70450; 71045; 80048; 80053; 83735; 84484; 85025; 93005; 93010; 96360; 96372; 97110; 97110-CQ; 97163; 97530; 97530-CQ; 99285-25; A6590; A9270; G0378; J1644; J7030

== ENCOUNTER 2025-03-28 13:05 | Day surgery (SDC) | payer MEDICARE, BC ==
[~2025-03-28] VITALS: Ht 162.6 cm; Wt 103.8 kg
[~2025-03-28 13:05] MED LIST changes: +Balanced Salt Epinephrine Irrigation Solution 500 mL IR SCH; +CYMBALTA20 M2 PO; +EZETIMIBE10 M6 PO; +Moxifloxacin HCL 0.5 MG/0.1 ML 0.4MLSYR LEFTEYE SCH; +PHENYLEPHRINE\\TROPICAMIDE\\TETRACAINE OPHTHALMIC DILATING SOLN LEFTEYE PRN; +Povidone-Iodine 450 DROP/30 ML Solution LEFTEYE SCH; +Povidone-Iodine 450 DROP/30 ML Solution ONE; +Tetracaine HCl/Pf 0.5% Opth Soln 4 ml ONE; +Triamcinolone Inj Susp 40 MG / ML 1ML Vial INJ SCH; +Triamcinolone Inj Susp 40 MG / ML 1ML Vial ONE
[2025-03-28] MEDS ORDERED: REPATHA SU140 MG/1 M SQ (13:35)
[2025-03-28] MEDS ORDERED: LORA10ER PO (13:36)
[2025-03-28] MEDS ORDERED: VITAMIN D310 MC4 PO (13:37)
[2025-03-28] MEDS ORDERED: MAGNESIUM OXID500 MG PO (13:37)
[2025-03-28] MEDS ORDERED: B-COMPLEX WITH1 EAC2 PO (13:38)
--- NOTE | 2025-03-28 14:06 | NUR ---
03/28/25 1406 Verna Paulino PT STATED SHE WAS ANXIOUS 150/102 86 98% 18 SECOND BP TAKEN:163/96 BP IMPROVED
[2025-03-28 14:48] VITALS: BP 148/82
== END 2025-03-28 14:33 | disposition home or self-care (01) ==
LOC: ORSCSDS 13:05
PROVIDERS: Ophthalmology
PROC: 08RK3JZ Replacement of Left Lens with Synthetic Substitute, Percutaneous Approach (ICD-10-PCS; principal; 2025-03-28 14:30)
DX: H25.812 Combined forms of age-related cataract, left eye (principal); Z96.1 Presence of intraocular lens; I10 Essential (primary) hypertension; E78.5 Hyperlipidemia, unspecified; K21.9 Gastro-esophageal reflux disease without esophagitis; G47.33 Obstructive sleep apnea (adult) (pediatric); J44.9 Chronic obstructive pulmonary disease, unspecified; M79.7 Fibromyalgia; I25.10 Atherosclerotic heart disease of native coronary artery without angina pectoris; Z79.82 Long term (current) use of aspirin; Z79.02 Long term (current) use of antithrombotics/antiplatelets; Z79.899 Other long term (current) drug therapy; Z87.891 Personal history of nicotine dependence
CPT/HCPCS: A9270; J3301; V2632